=== PATIENT | male | born 1960 | race Caucasian/White ===

== ENCOUNTER → 2018-06-21 | Day surgery (SDC) | payer OTHER ==
[2018-06-06 11:31] VITALS: BMI 33.0
[~2018-06-21] VITALS: Ht 175.3 cm; Wt 102.0 kg
[~2018-06-21] MED LIST: ACETAMINOPHEN/CODEINE 300/30MG TAB PO PRN; ASPI81TA28 PO; ATROPINE SULFATE 0.1 MG/ML 5ML SYR IV PRN; BUPIVACAINE 0.5 % 5 MG/1 ML PF 10ML VIAL ONE; CEFAZOLIN 2000MG IV PUSH 15 ML IV SCH; DEXAMETHASONE SOD INJ 4 MG/ML VIAL ONE; EpHEDrine SULFATE INJ 50 MG/ML AMP IV PRN; FENTANYL CITRATE INJ 50 MCG/1 ML 2 ML VIAL IV PRN; FENTANYL CITRATE INJ 50 MCG/1 ML 2 ML VIAL ONE; GLC/500 PO; HYDROmorphone INJ 0.5 MG/0.5 ML SYR IV PRN; KETOROLAC TROMETHAMINE 30 MG/ML VIAL ONE; LACTATED RINGER'S 1000ML 1,000 ML IV SCH; LIDOCAINE/EPINEPHRINE 1% 20 ML VIAL ONE; LISI-729 PO; MIDAZOLAM HCL 1 MG/ML 2ML VIAL ONE; ONDANSETRON INJ 2 MG/ML 2 ML VIAL IV PRN; ONDANSETRON INJ 2 MG/ML 2 ML VIAL ONE; PRLSR20 PO; PROPOFOL IV EMULSION 10 MG/ML 20 ML VIAL ONE; SODIUM CHLORIDE 0.9% 1000ML 1,000 ML IV SCH
[2018-06-21 08:46] VITALS: BP 123/79; PULSE 80; TEMP 36.8; O2SAT 94; Ht 175.3 cm; Wt 102.0 kg
--- NOTE | 2018-06-21 09:19 | History & Physical Bridge Note ---
H&P Re-Evaluation Bridge Note: I have examined the patient, reviewed the History & Physical and in the interval since the performance of the History & Physical I have noted the following changes of clinical significance: Basal cell carcinoma of right shoulder, abnormal lesion of left shoulder. Plan for wide local excision of skin lesion from right shoulder, excision of left shoulder lesion. The risks were reviewed to include but not limited to bleeding , infection, seroma/hematoma, wound complications, recurrence, need for future more extensive surgery, and the risks of anesthesia. No changes noted
--- NOTE | 2018-06-21 12:30 | [facility] Post Operative Brief Note ---
Immediate Operative Summary Operative Date Jun 21, 2018. Pre-Operative Diagnosis Basal Cell Carcinoma of the right shoulder Left Shoulder Skin Lesion Post-Operative Diagnosis Basal Cell Carcinoma of the right shoulder Left Shoulder Skin Lesion Procedure(s) Performed Right Wide Local Excision of Shoulder Basal Cell Carcinoma Left Excisional Biopsy of Shoulder Skin Lesion Surgeon Dr. Gideon Bryant Visual Education Director Surgeon(s) Memo Drake AP-kwame and Lilliam Bhatia PAStanleyc Estimated Blood Loss 4 ml Findings Consistent with Post-Op Diagnosis Specimens A: Right shoulder lesion(skin) single stitch medial--Double stitch posterior B: Left shoulder skin lesion Single stitch medial and Double stitch posterior both sent fresh at 1220 to lab Drains None Anesthesia Type General Complication(s) none Disposition Accompanied Pt To Recover: no Disposition: Recovery Room / PACU
--- NOTE | 2018-06-21 12:38 | [facility] Operative Report ---
Operative Report Operative Date Jun 21, 2018. Pre-Operative Diagnosis Basal Cell Carcinoma of the right shoulder Left Shoulder Skin Lesion Post-Operative Diagnosis same Procedure(s) Performed Wide local excision basal cell carcinoma right shoulder; excisional biopsy left shoulder skin lesion Surgeon Dr. Gideon Bryant Food Mixer Surgeon(s) Memo Valle and Lilliam Bhatia PA-c Estimated Blood Loss 4 ml Findings 12x 4cm excision for right shoulder basal cell carcinoma with margins; 9x3cm excision for left shoulder skin lesion. closed with interrupted 2-0 vicryl deep dermal sutures, 3-0 nylon simple interrupted and vertical mattress sutures. Specimens A: Right shoulder lesion(skin) single stitch medial--Double stitch posterior B: Left shoulder skin lesion Single stitch medial and Double stitch posterior both sent fresh at 1220 to lab Drains None Anesthesia General Complication(s) None Disposition Recovery Room / PACU Indications 57-year-old incarcerated male with skin lesions on both shoulders. Incisional biopsy of the right skin lesion revealed basal cell carcinoma. Plan for wide local excision of right shoulder basal cell carcinoma, excisional biopsy of left shoulder skin lesion. The risks of the procedure were discussed, all questions were answered, and the patient agreed to proceed with surgery as planned. Description of Procedure The patient was properly identified, consented, and taken to the operating room where he was placed in the supine position. General endotracheal anesthesia was induced. SCDs and a safety belt were placed. Preoperative antibiotics were administered. The patient's bilateral shoulders were prepped and draped in the standard sterile fashion. Surgical timeout was performed and all parties were in agreement that this was the correct patient and procedure to be performed and we continued as planned. We started with the right shoulder. The lesion was measured and was approximately 3.5 cm in size. To allow for adequate margins we planned the incision to be 12 cm x 4 cm in size local anesthetic was injected along the skin incision. A elliptical incision was made and deepened down to the subcutaneous tissue with electrocautery. The skin was then raised off of the subcutaneous tissue, excised, and passed off the table as specimen. The specimen was oriented. The wound was irrigated and hemostasis was confirmed. Flaps were then raised undermined skin for several centimeters to allow for less tension on the closure. The skin was closed with interrupted 2-0 Vicryl deep dermal sutures, followed by 3-0 nylon simple interrupted sutures with some vertical mattress sutures and areas of highest tension. Attention then turned to the left shoulder. The lesion was measured and was approximately 2.8 cm in size. To allow for adequate margins we planned the incision to be 9 cm x 3 cm in size. Local anesthetic was injected along the skin incision. A elliptical incision was made and deepened down to the subcutaneous tissue with electrocautery. The skin was then raised off of the subcutaneous tissue, excised, and passed off the table as specimen. The specimen was oriented. The wound was irrigated and hemostasis was confirmed. Flaps were then raised undermined skin for several centimeters to allow for less tension on the closure. The skin was closed with interrupted 2-0 Vicryl deep dermal sutures, followed by 3-0 nylon simple interrupted sutures with some vertical mattress sutures and areas of highest tension. Sterile dressings were applied to both wounds. The patient was extubated in the operating room and taken to the PACU where he recovered without apparent incident. All sponge, instrument and needle counts were correct at the conclusion of the procedure. The patient tolerated the procedure well. The physician's assistants were present and scrubbed for the entire to the case. They were essential in positioning the patient, prepping and draping, retraction and exposure, closure of the wounds, and placement of the dressings. I attest to the content of the Intraoperative Record and any orders documented therein. Any exceptions are noted below.
--- NOTE | 2018-06-21 12:44 | Discharge Instructions ---
Discharge Instructions Date of Service Jun 21, 2018. Admission Reason for Admission: Basal Cell Carcinoma Right Shoulder, Skin Lesion Discharge Discharge Diagnosis / Problem: Basal Cell Carcinoma Right Shoulder, Skin Lesion Discharge Goals Goal(s): Decrease discomfort, Improve function Activity Recommendations Activity Limitations: as noted below Lifting Limitations: gradually increase as tolerated Exercise/Sports Limitations: gradually increase as tolerated May Resume Sexual Activity: when tolerated Shower/Bathe: tomorrow Driving or Machine Use: resume 3 days after discharge . Instructions / Follow-Up Instructions / Follow-Up Sutures can be removed in 2 weeks. Patient may shower tomorrow, but please do not soak or scrub your incisions. For pain control- Patient can take Tylenol with Codeine #3 (300mg/30mg)- Can take 1 tablet every 6 hrs as needed for pain for the next 3 days. Current Hospital Diet Patient's current hospital diet: Discharge Diet Recommended Diet: Regular Diet Procedures Procedures Performed: Right Wide Local Excision of Shoulder Basal Cell Carcinoma Left Excisional Biopsy of Shoulder Skin Lesion Pending Studies Studies pending at discharge: yes List of pending studies: Pathology report. Medical Emergencies . Who to Call and When: Medical Emergencies: If at any time you feel your situation is an emergency, please call 911 immediately. . Non-Emergent Contact Non-Emergency issues call your: Primary Care Provider, Surgeon Call Non-Emergent contact if: temperature is above 101.5, your pain is not controlled, wound has increased drainage, wound has increased redness . "Provider Documentation" section prepared by Lilliam Bhatia. .
[2018-06-21 13:15] VITALS: BP 108/82; PULSE 76; TEMP 37; O2SAT 93
[2018-06-21 13:45] VITALS: BP 100/70; PULSE 75; TEMP 36.7; O2SAT 95
--- NOTE | 2018-06-21 14:11 | Anesthesiology Progress Note ---
Anesthesia Post Op Note Date & Time Jun 21, 2018 at 14:10 Vital Signs Pain Intensity: 0 Vital Signs Past 12 Hours Date Time Temp Pulse Resp B/P (MAP) Pulse Ox O2 Delivery O2 Flow Rate FiO2 06/21/18 13:45 36.7 75 18 100/70 95 Room Air 06/21/18 13:15 37 76 18 108/82 93 Room Air 06/21/18 13:05 36.5 71 14 118/81 94 Room Air 06/21/18 12:55 70 14 112/83 94 Room Air 06/21/18 12:45 71 14 115/83 96 Nasal Cannula 3 06/21/18 12:37 36.0 76 14 126/92 95 Nasal Cannula 3 06/21/18 08:46 36.8 80 18 123/79 (94) 94 Room Air Notes Mental Status: alert / awake / arousable, participated in evaluation Pt Amnestic to Procedure: Yes Nausea / Vomiting: adequately controlled Pain: adequately controlled Airway Patency, RR, SpO2: stable & adequate BP & HR: stable & adequate Hydration State: stable & adequate Anesthetic Complications: no major complications apparent
== END ==
LOC: C.ACU 08:22
PROVIDERS: ATTEND Surgery
DX: C44.612 Basal cell carcinoma of skin of right upper limb, including shoulder (principal); L98.9 Disorder of the skin and subcutaneous tissue, unspecified; I10 Essential (primary) hypertension; E11.9 Type 2 diabetes mellitus without complications; K21.9 Gastro-esophageal reflux disease without esophagitis; F17.200 Nicotine dependence, unspecified, uncomplicated; F19.90 Other psychoactive substance use, unspecified, uncomplicated; Z79.82 Long term (current) use of aspirin; Z79.84 Long term (current) use of oral hypoglycemic drugs; Z79.899 Other long term (current) drug therapy; Z91.013 Allergy to seafood; E66.9 Obesity, unspecified; Z68.33 Body mass index [BMI] 33.0-33.9, adult